=== PATIENT | male | born 1935 | race Caucasian/White ===

== ENCOUNTER 2023-09-11 18:28 | Inpatient (IN) | payer OTHER, MEDICAID ==
[~2023-09-11] VITALS: Ht 172.7 cm; Wt 68.0 kg
[2023-09-11 18:46] VITALS: BP 94/63; PULSE 125; RESP 20; TEMP 100.1; O2SAT 97
[2023-09-11] MEDS ORDERED: ACETAMINOPHEN 650 MG SUPP RC ONE ×2 (19:07→19:25)
[2023-09-11] MEDS ORDERED: PIPERACILLIN/TAZOBACTAM 3.375 GM in DEXTROSE 5% 50 ML IV ONE (19:55)
[2023-09-11] MEDS ORDERED: NACL 0.9% 2,000 ML IV ONE (19:55)
[2023-09-11] MEDS ORDERED: PIPERACILLIN/TAZOBACTAM 3.375 GM VIAL IV ONE (19:58)
[2023-09-11 20:28] LABS: BASOPHILS % (AUTO) 0.1 % (0.0-2.0); EOSINOPHILS % (AUTO) 0.1 % (0.0-4.0); HEMATOCRIT 33.7 % (36-52); HEMOGLOBIN 11.3 g/dL (12.0-18.0); LYMPHOCYTES # (AUTO) 0.4 K/uL (2.0-11.5); LYMPHOCYTES % (AUTO) 4.8 % (20.5-51.1); MEAN CORPUSCULAR HEMOGLOBIN 37 pg (27-31); MEAN CORPUSCULAR HGB CONC 34 g/dL (33-37); MEAN CORPUSCULAR VOLUME 109.7 fL (80-94); MONOCYTES # (AUTO) 0.5 K/uL (0.8-1.0); MONOCYTES % (AUTO) 6.2 % (1.7-9.3); NEUTROPHILS # (AUTO) 6.9 K/uL (1.8-7.7); NEUTROPHILS % (AUTO) 88.8 % (42.2-75.2); PLATELET COUNT (AUTO) 101 K/uL (140-450); RED BLOOD CELL COUNT(AUTO) 3.07 MIL/uL (4.20-6.10); RED CELL DISTRIBUTION WIDTH 14.1 % (11.6-13.7); WHITE BLOOD COUNT (AUTO) 7.8 K/uL (4.8-10.8)
[2023-09-11 20:43] LABS: ALANINE AMINOTRANSFERASE 21 U/L (12-78); ALBUMIN 2.2 g/dL (3.4-5.0); ALKALINE PHOSPHATASE 76 U/L (50-136); ANION GAP 12.7 (8-16); ASPARTATE AMINOTRANSFERASE 30 U/L (15-37); CALCIUM 9.2 mg/dL (8.5-10.1); CARBON DIOXIDE 28.5 mmol/L (21-32); CHLORIDE 110 mmol/L (98-107); CREATININE 1.6 mg/dL (0.6-1.3); GLUCOSE 300 mg/dL (74-106); POTASSIUM 4.2 mmol/L (3.5-5.1); SODIUM SERUM 147 mmol/L (136-145); TOTAL BILIRUBIN 1.2 mg/dL (0.0-1.0); TOTAL PROTEIN, SERUM 6.5 g/dL (6.4-8.2)
[2023-09-11 20:44] LABS: UREA NITROGEN, BLOOD 85 mg/dL (7-18)
[2023-09-11 20:46] LABS: CREATINE KINASE, TOTAL 546 U/L (39-308)
[2023-09-11 20:49] LABS: LACTIC ACID 3.4 mmol/L (0.4-2.0)
[2023-09-11 21:39] LABS: BILIRUBIN,URINE NEGATIVE (NEGATIVE); BLOOD, URINE 2+ (NEGATIVE); LEUKOCYTE ESTERASE ,URINE NEGATIVE (NEGATIVE); NITRITE, URINE POSITIVE (NEGATIVE); PROTEIN,URINE 2+ (NEGATIVE); UGLUCOSE NEGATIVE (NEGATIVE)
[2023-09-11 21:40] LABS: APPEARANCE,URINE CLOUDY (CLEAR); COLOR,URINE AMBER (YELLOW)
[2023-09-11 21:49] LABS: BACTERIA,URINE >30 (MANY) /HPF (None Seen); MUCUS,URINE 2+ /LPF (None Seen); SQUAMOUS EPITHELIAL CELL,UR 0-3 (FEW) /LPF (0-3 (FEW)); WBC,URINE 0-5 /HPF (0-5)
[2023-09-11] MEDS ORDERED: HYDROcodone/APAP 5/325 MG 1 TAB TAB PO PRN (22:20)
[2023-09-11] MEDS ORDERED: ACETAMINOPHEN 325 MG TAB PO PRN (22:20)
[2023-09-11] MEDS ORDERED: NACL 0.9% 1,000 ML IV SCH (22:20)
[2023-09-11] MEDS ORDERED: LORazepam 2 MG/ML VIAL IVP PRN (22:20)
[2023-09-11] MEDS ORDERED: MORPHINE SULFATE 4 MG/ML SYR IVP PRN (22:20)
[2023-09-11 22:22] LABS: FLU A ANTIGEN negative (NEGATIVE); FLU B ANTIGEN NEGATIVE (NEGATIVE)
[2023-09-11] MEDS ORDERED: INSULIN LANTUS 100 UNITS/ML 10 ML VIAL SUBQ ONE (22:30)
[2023-09-11] MEDS ORDERED: HEPARIN PER PHARMACY MC PRN (22:30)
[2023-09-11] MEDS ORDERED: hePARIN / DEXT 5% PREMIX 250 ML IV ONE (22:30)
[2023-09-11] MEDS ORDERED: DEXTROSE 50% 50 ML SYR IVP PRN (22:35)
[2023-09-11] MEDS ORDERED: cefTRIAXone 1,000 MG VIAL ONE (22:55)
[2023-09-11 22:59] LABS: CKMB RELATIVE INDEX 0.1 (0.0-2.5); CREATINE KINASE MB 0.5 ng/mL (0-3.6)
[2023-09-11 23:00] LABS: THYROID STIMULATING HORMONE 1.1 uIU/mL (0.34-3.74)
[2023-09-12] VITALS (15 sets, daily range): BP systolic 110–138; BP diastolic 60–70; PULSE 61–130; RESP 16–28; TEMP 98–99.5; O2SAT 88–100
[2023-09-12] MEDS ORDERED: NACL 0.9% 1,000 ML IV ONE (00:05)
[2023-09-12 01:08] LABS: INR 1.12 (0.8-1.2); PARTIAL THROMBOPLASTIN TIME 35.8 secs (22-35.6); PROTHROMBIN TIME 11.7 secs (10.8-13.4)
[2023-09-12 01:24] LABS: LACTIC ACID 2.7 mmol/L (0.4-2.0)
[2023-09-12] MEDS: IPRATROPIUM 0.02% 0.5 MG/2.5 ML NEBU INH SCH ×4 (01:46→21:54)
[2023-09-12] MEDS: ALBUTEROL 0.083% 2.5 MG/3 ML NEBU INH PRN ×2 (01:46→21:54)
[2023-09-12 04:16] LABS: EOSINOPHILS # (AUTO) 0.1 K/uL (0-0.4); EOSINOPHILS % (AUTO) 1.5 % (0.0-4.0); HEMOGLOBIN 11.3 g/dL (12.0-18.0); LYMPHOCYTES # (AUTO) 0.3 K/uL (2.0-11.5); LYMPHOCYTES % (AUTO) 5.4 % (20.5-51.1); MEAN CORPUSCULAR HEMOGLOBIN 36 pg (27-31); MEAN CORPUSCULAR HGB CONC 33 g/dL (33-37); MEAN CORPUSCULAR VOLUME 109.9 fL (80-94); MONOCYTES # (AUTO) 0.4 K/uL (0.8-1.0); MONOCYTES % (AUTO) 5.6 % (1.7-9.3); NEUTROPHILS # (AUTO) 5.5 K/uL (1.8-7.7); NEUTROPHILS % (AUTO) 87.5 % (42.2-75.2); PLATELET COUNT (AUTO) 81 K/uL (140-450); RED BLOOD CELL COUNT(AUTO) 3.09 MIL/uL (4.20-6.10); RED CELL DISTRIBUTION WIDTH 14.2 % (11.6-13.7); WHITE BLOOD COUNT (AUTO) 6.3 K/uL (4.8-10.8)
[2023-09-12 06:53] LABS: ALANINE AMINOTRANSFERASE 25 U/L (12-78); ALBUMIN 2.1 g/dL (3.4-5.0); ALKALINE PHOSPHATASE 73 U/L (50-136); ANION GAP 12.4 (8-16); ASPARTATE AMINOTRANSFERASE 32 U/L (15-37); CARBON DIOXIDE 29.8 mmol/L (21-32); CHLORIDE 115 mmol/L (98-107); CREATININE 1.5 mg/dL (0.6-1.3); GLUCOSE 176 mg/dL (74-106); POTASSIUM 4.2 mmol/L (3.5-5.1); SODIUM SERUM 153 mmol/L (136-145); TOTAL PROTEIN, SERUM 6.4 g/dL (6.4-8.2)
[2023-09-12 07:21] LABS: UREA NITROGEN, BLOOD 78 mg/dL (7-18)
[2023-09-12 08:01] LABS: LACTIC ACID 4.5 mmol/L (0.4-2.0)
[2023-09-12] MEDS ORDERED: ACETAMINOPHEN 650 MG SUPP RC ONE (08:02)
[2023-09-12] MEDS ORDERED: DEXT 5% / NACL 0.45% 1,000 ML IV SCH (08:05)
[2023-09-12] MEDS ORDERED: VANCOMYCIN PER PHARMACY MC PRN (08:10)
[2023-09-12] MEDS ORDERED: ACETAMINOPHEN 650 MG SUPP RC SCH (08:14)
[2023-09-12] MEDS ORDERED: MULT-2253 PO (08:33)
[2023-09-12] MEDS ORDERED: PRON INH (08:33)
[2023-09-12] MEDS ORDERED: NUTR-298 PO (08:33)
[2023-09-12] MEDS ORDERED: ZINC50TA58 PO (08:33)
[2023-09-12] MEDS ORDERED: MAGN400S60 PO (08:33)
[2023-09-12] MEDS ORDERED: XAR10 PO (08:33)
[2023-09-12] MEDS ORDERED: ASCO500T95 PO (08:33)
[2023-09-12] MEDS ORDERED: BISA-218 RC (08:33)
[2023-09-12] MEDS ORDERED: VITB12 PO (08:33)
[2023-09-12] MEDS: BLOOD GLUCOSE MONITORING 1 DEV DEV FS SCH ×4 (08:37→21:29)
[2023-09-12] MEDS: hePARIN / DEXT 5% PREMIX 250 ML IV SCH ×2 (10:46→18:59)
[2023-09-12] MEDS: FOAM DRESSING TP SCH (13:37)
[2023-09-12] MEDS: GAUZE TP SCH (13:37)
[2023-09-12] MEDS: NON ADHERENT DRESSING TP SCH (13:37)
[2023-09-12] MEDS: HYDRAGUARD CREAM TP SCH (13:43)
[2023-09-12] MEDS: DEXT 5% / NACL 0.9% 1,000 ML IV SCH (16:05)
[2023-09-12] MEDS ORDERED: LORazepam 1 MG TAB PO PRN (16:15)
[2023-09-12 18:21] LABS: INR 1.14 (0.8-1.2); PARTIAL THROMBOPLASTIN TIME 44.3 secs (22-35.6); PROTHROMBIN TIME 11.9 secs (10.8-13.4)
[2023-09-12] MEDS: VANCOMYCIN 1,000 MG in DEXTROSE 5% 250 ML IV SCH (18:51)
[2023-09-12] MEDS: PIPERACILLIN/TAZOBACTAM 3.375 GM in DEXTROSE 5% 50 ML IV SCH (21:27)
[2023-09-13] VITALS (10 sets, daily range): BP systolic 103–134; BP diastolic 59–75; PULSE 56–107; RESP 16–20; TEMP 96.6–98.1; O2SAT 93–100
[2023-09-13] MEDS: IPRATROPIUM 0.02% 0.5 MG/2.5 ML NEBU INH SCH ×4 (01:00→20:08)
[2023-09-13] MEDS: GAUZE TP SCH ×2 (01:00→13:03)
[2023-09-13] MEDS: HYDRAGUARD CREAM TP SCH ×2 (01:00→13:04)
[2023-09-13] MEDS: DEXT 5% / NACL 0.9% 1,000 ML IV SCH (02:05)
[2023-09-13] MEDS: PIPERACILLIN/TAZOBACTAM 3.375 GM in DEXTROSE 5% 50 ML IV SCH ×2 (04:47→13:03)
[2023-09-13] MEDS: BLOOD GLUCOSE MONITORING 1 DEV DEV FS SCH ×4 (06:33→21:43)
[2023-09-13] MEDS: INSULIN LISPRO SLIDING SCALE 100 UNITS/ML VIAL SUBQ PRN ×2 (06:36→12:21)
[2023-09-13 06:46] LABS: BASOPHILS % (AUTO) 0.1 % (0.0-2.0); EOSINOPHILS % (AUTO) 0.7 % (0.0-4.0); HEMATOCRIT 29.7 % (36-52); HEMOGLOBIN 9.8 g/dL (12.0-18.0); LYMPHOCYTES # (AUTO) 0.6 K/uL (2.0-11.5); LYMPHOCYTES % (AUTO) 10.3 % (20.5-51.1); MEAN CORPUSCULAR HEMOGLOBIN 37 pg (27-31); MEAN CORPUSCULAR HGB CONC 33 g/dL (33-37); MONOCYTES # (AUTO) 0.3 K/uL (0.8-1.0); MONOCYTES % (AUTO) 4.9 % (1.7-9.3); NEUTROPHILS # (AUTO) 4.6 K/uL (1.8-7.7); PLATELET COUNT (AUTO) 57 K/uL (140-450); RED BLOOD CELL COUNT(AUTO) 2.68 MIL/uL (4.20-6.10); RED CELL DISTRIBUTION WIDTH 14.5 % (11.6-13.7); WHITE BLOOD COUNT (AUTO) 5.5 K/uL (4.8-10.8)
[2023-09-13 07:35] LABS: ALANINE AMINOTRANSFERASE 62 U/L (12-78); ALBUMIN 1.7 g/dL (3.4-5.0); ALKALINE PHOSPHATASE 72 U/L (50-136); ANION GAP 9.6 (8-16); ASPARTATE AMINOTRANSFERASE 83 U/L (15-37); CALCIUM 8.5 mg/dL (8.5-10.1); CARBON DIOXIDE 28.7 mmol/L (21-32); CHLORIDE 118 mmol/L (98-107); CREATININE 1.2 mg/dL (0.6-1.3); GLUCOSE 192 mg/dL (74-106); POTASSIUM 3.3 mmol/L (3.5-5.1); SODIUM SERUM 153 mmol/L (136-145); TOTAL BILIRUBIN 0.5 mg/dL (0.0-1.0); TOTAL PROTEIN, SERUM 5.6 g/dL (6.4-8.2); UREA NITROGEN, BLOOD 32 mg/dL (7-18)
[2023-09-13] MEDS ORDERED: POTASSIUM CHLORIDE 10 MEQ TABER PO PRN (08:10)
[2023-09-13] MEDS ORDERED: MAG SULF 2000 MG/WATER PREMIX 50 ML IV PRN (08:10)
[2023-09-13] MEDS ORDERED: ACETAMINOPHEN 325 MG TAB PO PRN (08:10)
[2023-09-13] MEDS ORDERED: ONDANSETRON 4 MG/2 ML VIAL IVP PRN (08:10)
[2023-09-13] MEDS ORDERED: ZOLPIDEM 10 MG TAB PO PRN (08:10)
[2023-09-13] MEDS: INSULIN LANTUS 100 UNITS/ML 10 ML VIAL SUBQ SCH (08:40)
[2023-09-13] MEDS: VANCOMYCIN 1,000 MG in DEXTROSE 5% 250 ML IV SCH (08:41)
[2023-09-13] MEDS ORDERED: POTASSIUM CHLORIDE 20% 40 MEQ/15 ML UDC GT SCH (11:39)
[2023-09-13] MEDS: DEXTROSE 5% 1,000 ML IV SCH ×2 (12:28→21:40)
[2023-09-13] MEDS: FOAM DRESSING TP SCH (13:03)
[2023-09-13] MEDS: NON ADHERENT DRESSING TP SCH (13:03)
[2023-09-13] MEDS: CEFEPIME 1,000 MG in DEXTROSE 5% 50 ML IV SCH (21:40)
[2023-09-14] VITALS (12 sets, daily range): BP systolic 117–145; BP diastolic 57–80; PULSE 55–104; RESP 16–20; TEMP 97.1–98.9; O2SAT 95–100
[2023-09-14] MEDS: IPRATROPIUM 0.02% 0.5 MG/2.5 ML NEBU INH SCH ×4 (01:00→19:00)
[2023-09-14] MEDS: GAUZE TP SCH ×2 (01:32→13:07)
[2023-09-14] MEDS: HYDRAGUARD CREAM TP SCH ×2 (01:32→13:06)
[2023-09-14] MEDS: BLOOD GLUCOSE MONITORING 1 DEV DEV FS SCH ×4 (06:43→21:16)
[2023-09-14] MEDS: DEXTROSE 5% 1,000 ML IV SCH ×2 (06:48→22:07)
[2023-09-14 09:27] LABS: BASOPHILS % (AUTO) 0.1 % (0.0-2.0); EOSINOPHILS % (AUTO) 0.1 % (0.0-4.0); HEMATOCRIT 28.7 % (36-52); HEMOGLOBIN 9.5 g/dL (12.0-18.0); LYMPHOCYTES # (AUTO) 0.4 K/uL (2.0-11.5); LYMPHOCYTES % (AUTO) 10.9 % (20.5-51.1); MEAN CORPUSCULAR HEMOGLOBIN 37 pg (27-31); MEAN CORPUSCULAR HGB CONC 33 g/dL (33-37); MEAN CORPUSCULAR VOLUME 110.7 fL (80-94); MONOCYTES # (AUTO) 0.1 K/uL (0.8-1.0); MONOCYTES % (AUTO) 3.3 % (1.7-9.3); NEUTROPHILS # (AUTO) 3.5 K/uL (1.8-7.7); NEUTROPHILS % (AUTO) 85.6 % (42.2-75.2); PLATELET COUNT (AUTO) 51 K/uL (140-450); RED BLOOD CELL COUNT(AUTO) 2.59 MIL/uL (4.20-6.10); RED CELL DISTRIBUTION WIDTH 14.3 % (11.6-13.7); WHITE BLOOD COUNT (AUTO) 4.1 K/uL (4.8-10.8)
[2023-09-14 09:41] LABS: ALANINE AMINOTRANSFERASE 87 U/L (12-78); ALBUMIN 1.5 g/dL (3.4-5.0); ALKALINE PHOSPHATASE 84 U/L (50-136); ANION GAP 5.7 (8-16); ASPARTATE AMINOTRANSFERASE 65 U/L (15-37); CALCIUM 8.5 mg/dL (8.5-10.1); CARBON DIOXIDE 30.5 mmol/L (21-32); CHLORIDE 113 mmol/L (98-107); CREATININE 0.9 mg/dL (0.6-1.3); GLUCOSE 202 mg/dL (74-106); POTASSIUM 4.2 mmol/L (3.5-5.1); SODIUM SERUM 145 mmol/L (136-145); TOTAL BILIRUBIN 0.6 mg/dL (0.0-1.0); TOTAL PROTEIN, SERUM 5.3 g/dL (6.4-8.2); UREA NITROGEN, BLOOD 46 mg/dL (7-18)
[2023-09-14] MEDS: CEFEPIME 1,000 MG in DEXTROSE 5% 50 ML IV SCH ×2 (09:50→21:59)
[2023-09-14] MEDS: ASCORBIC ACID 500 MG/5 ML ORASYR GT SCH (09:50)
[2023-09-14] MEDS: ZINC SULF 220 MG CAP PO SCH (09:50)
[2023-09-14] MEDS: MULTIVITAMIN/MINERALS 1 TAB PO SCH (09:50)
[2023-09-14] MEDS: INSULIN LANTUS 100 UNITS/ML 10 ML VIAL SUBQ SCH (09:52)
[2023-09-14] MEDS: VANCOMYCIN 1.25GM PREMIX 250 ML IV SCH (11:36)
[2023-09-14] MEDS: FOAM DRESSING TP SCH (13:07)
[2023-09-14] MEDS: NON ADHERENT DRESSING TP SCH (13:07)
[2023-09-14] MEDS: INSULIN LISPRO SLIDING SCALE 100 UNITS/ML VIAL SUBQ PRN (16:11)
[2023-09-15] VITALS (9 sets, daily range): BP systolic 114–149; BP diastolic 43–93; PULSE 86–101; RESP 16–20; TEMP 97–98.6; O2SAT 94–100
[2023-09-15] MEDS: IPRATROPIUM 0.02% 0.5 MG/2.5 ML NEBU INH SCH ×3 (00:25→19:56)
[2023-09-15] MEDS: GAUZE TP SCH ×2 (01:38→13:42)
[2023-09-15] MEDS: HYDRAGUARD CREAM TP SCH ×2 (01:38→13:42)
[2023-09-15] MEDS: VANCOMYCIN 1.25GM PREMIX 250 ML IV SCH (05:41)
[2023-09-15] MEDS: BLOOD GLUCOSE MONITORING 1 DEV DEV FS SCH ×4 (07:01→21:07)
[2023-09-15] MEDS: ZINC SULF 220 MG CAP PO SCH (09:36)
[2023-09-15] MEDS: CEFEPIME 1,000 MG in DEXTROSE 5% 50 ML IV SCH (09:36)
[2023-09-15] MEDS: MULTIVITAMIN/MINERALS 1 TAB PO SCH (09:36)
[2023-09-15] MEDS: INSULIN LANTUS 100 UNITS/ML 10 ML VIAL SUBQ SCH (09:37)
[2023-09-15] MEDS: ASCORBIC ACID 500 MG/5 ML ORASYR GT SCH (09:38)
[2023-09-15 10:54] LABS: BASOPHILS % (AUTO) 0.1 % (0.0-2.0); EOSINOPHILS % (AUTO) 0.2 % (0.0-4.0); HEMATOCRIT 26.9 % (36-52); HEMOGLOBIN 8.9 g/dL (12.0-18.0); LYMPHOCYTES # (AUTO) 0.7 K/uL (2.0-11.5); LYMPHOCYTES % (AUTO) 12.1 % (20.5-51.1); MEAN CORPUSCULAR HEMOGLOBIN 36 pg (27-31); MEAN CORPUSCULAR HGB CONC 33 g/dL (33-37); MEAN CORPUSCULAR VOLUME 109.8 fL (80-94); MONOCYTES # (AUTO) 0.2 K/uL (0.8-1.0); MONOCYTES % (AUTO) 3.9 % (1.7-9.3); NEUTROPHILS # (AUTO) 4.7 K/uL (1.8-7.7); NEUTROPHILS % (AUTO) 83.7 % (42.2-75.2); PLATELET COUNT (AUTO) 63 K/uL (140-450); RED BLOOD CELL COUNT(AUTO) 2.45 MIL/uL (4.20-6.10); RED CELL DISTRIBUTION WIDTH 13.9 % (11.6-13.7); WHITE BLOOD COUNT (AUTO) 5.6 K/uL (4.8-10.8)
[2023-09-15 11:14] LABS: ALANINE AMINOTRANSFERASE 59 U/L (12-78); ALBUMIN 1.4 g/dL (3.4-5.0); ALKALINE PHOSPHATASE 81 U/L (50-136); ANION GAP 7.7 (8-16); ASPARTATE AMINOTRANSFERASE 37 U/L (15-37); CARBON DIOXIDE 29.6 mmol/L (21-32); CHLORIDE 111 mmol/L (98-107); CREATININE 0.7 mg/dL (0.6-1.3); GLUCOSE 111 mg/dL (74-106); POTASSIUM 3.3 mmol/L (3.5-5.1); SODIUM SERUM 145 mmol/L (136-145); TOTAL BILIRUBIN 0.7 mg/dL (0.0-1.0); UREA NITROGEN, BLOOD 34 mg/dL (7-18)
[2023-09-15] MEDS ORDERED: POTASSIUM CHLORIDE 20% 40 MEQ/15 ML UDC GT SCH (13:00)
[2023-09-15] MEDS: FOAM DRESSING TP SCH (13:42)
[2023-09-15] MEDS: NON ADHERENT DRESSING TP SCH (13:42)
[2023-09-15] MEDS ORDERED: TOBRAMYCIN 0.3% OPTH OINT 3.5 GM TUBE OP SCH (14:20)
[2023-09-15] MEDS: TOBRAMYCIN 0.3% OPTH SOL 5 ML BTL BOTH EYES SCH ×2 (16:43→21:02)
[2023-09-15] MEDS ORDERED: AMPICILLIN/SULBACTAM 3 GM VIAL ONE (23:40)
[2023-09-15] MEDS ORDERED: AMPICILLIN 1,000 MG VIAL ONE (23:51)
[2023-09-16] VITALS (12 sets, daily range): BP systolic 110–140; BP diastolic 56–76; PULSE 94–106; RESP 16–18; TEMP 97.4–98.2; O2SAT 97–100
[2023-09-16] MEDS: TOBRAMYCIN 0.3% OPTH SOL 5 ML BTL BOTH EYES SCH ×6 (00:06→22:46)
[2023-09-16] MEDS: AMPICILLIN 2,000 MG in NACL 0.9% 100 ML IV SCH ×4 (00:06→17:02)
[2023-09-16] MEDS: HYDRAGUARD CREAM TP SCH ×2 (00:11→12:04)
[2023-09-16] MEDS: GAUZE TP SCH ×2 (00:12→12:04)
[2023-09-16] MEDS: IPRATROPIUM 0.02% 0.5 MG/2.5 ML NEBU INH SCH ×4 (00:22→20:42)
[2023-09-16] MEDS ORDERED: AMPICILLIN 2,000 MG VIAL ONE (05:06)
[2023-09-16] MEDS: INSULIN LISPRO SLIDING SCALE 100 UNITS/ML VIAL SUBQ PRN ×3 (06:09→22:48)
[2023-09-16 06:25] LABS: ANION GAP 8.7 (8-16); CALCIUM 7.9 mg/dL (8.5-10.1); CARBON DIOXIDE 28.1 mmol/L (21-32); CHLORIDE 111 mmol/L (98-107); CREATININE 0.7 mg/dL (0.6-1.3); GLUCOSE 171 mg/dL (74-106); POTASSIUM 3.8 mmol/L (3.5-5.1); SODIUM SERUM 144 mmol/L (136-145); UREA NITROGEN, BLOOD 31 mg/dL (7-18)
[2023-09-16] MEDS: BLOOD GLUCOSE MONITORING 1 DEV DEV FS SCH ×4 (06:45→22:45)
[2023-09-16] MEDS: ZINC SULF 220 MG CAP PO SCH (08:13)
[2023-09-16] MEDS: ASCORBIC ACID 500 MG/5 ML ORASYR GT SCH (08:13)
[2023-09-16] MEDS: MULTIVITAMIN/MINERALS 1 TAB PO SCH (08:13)
[2023-09-16] MEDS: INSULIN LANTUS 100 UNITS/ML 10 ML VIAL SUBQ SCH (08:19)
[2023-09-16 09:38] LABS: EOSINOPHILS % (AUTO) 0.3 % (0.0-4.0); HEMATOCRIT 26.8 % (36-52); LYMPHOCYTES # (AUTO) 0.5 K/uL (2.0-11.5); LYMPHOCYTES % (AUTO) 8.3 % (20.5-51.1); MEAN CORPUSCULAR HEMOGLOBIN 37 pg (27-31); MEAN CORPUSCULAR HGB CONC 34 g/dL (33-37); MEAN CORPUSCULAR VOLUME 109.1 fL (80-94); MONOCYTES # (AUTO) 0.2 K/uL (0.8-1.0); NEUTROPHILS # (AUTO) 5.6 K/uL (1.8-7.7); NEUTROPHILS % (AUTO) 88.4 % (42.2-75.2); PLATELET COUNT (AUTO) 84 K/uL (140-450); RED BLOOD CELL COUNT(AUTO) 2.45 MIL/uL (4.20-6.10); RED CELL DISTRIBUTION WIDTH 13.8 % (11.6-13.7); WHITE BLOOD COUNT (AUTO) 6.3 K/uL (4.8-10.8)
[2023-09-16 09:52] LABS: ALANINE AMINOTRANSFERASE 51 U/L (12-78); ALBUMIN 1.4 g/dL (3.4-5.0); ALKALINE PHOSPHATASE 85 U/L (50-136); ANION GAP 8.9 (8-16); ASPARTATE AMINOTRANSFERASE 26 U/L (15-37); CHLORIDE 111 mmol/L (98-107); CREATININE 0.7 mg/dL (0.6-1.3); GLUCOSE 195 mg/dL (74-106); POTASSIUM 3.9 mmol/L (3.5-5.1); SODIUM SERUM 146 mmol/L (136-145); TOTAL BILIRUBIN 0.6 mg/dL (0.0-1.0); UREA NITROGEN, BLOOD 29 mg/dL (7-18)
[2023-09-16] MEDS: NON ADHERENT DRESSING TP SCH (12:04)
[2023-09-16] MEDS: FOAM DRESSING TP SCH (12:04)
[2023-09-17] VITALS (11 sets, daily range): BP systolic 121–152; BP diastolic 57–82; PULSE 82–105; RESP 16–19; TEMP 97.9–98.6; O2SAT 92–100
[2023-09-17] MEDS: AMPICILLIN 2,000 MG in NACL 0.9% 100 ML IV SCH ×3 (00:47→11:26)
[2023-09-17] MEDS: TOBRAMYCIN 0.3% OPTH SOL 5 ML BTL BOTH EYES SCH ×4 (00:52→11:24)
[2023-09-17] MEDS: GAUZE TP SCH ×2 (01:48→13:01)
[2023-09-17] MEDS: HYDRAGUARD CREAM TP SCH ×2 (01:50→13:02)
[2023-09-17] MEDS: IPRATROPIUM 0.02% 0.5 MG/2.5 ML NEBU INH SCH ×3 (01:55→13:22)
[2023-09-17] MEDS: BLOOD GLUCOSE MONITORING 1 DEV DEV FS SCH ×2 (06:57→11:12)
[2023-09-17 07:20] LABS: ALANINE AMINOTRANSFERASE 39 U/L (12-78); ALBUMIN 1.3 g/dL (3.4-5.0); ALKALINE PHOSPHATASE 79 U/L (50-136); ANION GAP 7.4 (8-16); ASPARTATE AMINOTRANSFERASE 21 U/L (15-37); CALCIUM 7.5 mg/dL (8.5-10.1); CARBON DIOXIDE 28.8 mmol/L (21-32); CHLORIDE 109 mmol/L (98-107); CREATININE 0.6 mg/dL (0.6-1.3); GLUCOSE 123 mg/dL (74-106); POTASSIUM 3.2 mmol/L (3.5-5.1); SODIUM SERUM 142 mmol/L (136-145); TOTAL BILIRUBIN 0.5 mg/dL (0.0-1.0); TOTAL PROTEIN, SERUM 4.9 g/dL (6.4-8.2); UREA NITROGEN, BLOOD 24 mg/dL (7-18)
[2023-09-17] MEDS ORDERED: POTASSIUM CHLORIDE 20% 40 MEQ/15 ML UDC GT PRN (08:05)
[2023-09-17] MEDS ORDERED: POTASSIUM CHLORIDE 20% 40 MEQ/15 ML UDC PO PRN (08:05)
[2023-09-17] MEDS: ASCORBIC ACID 500 MG/5 ML ORASYR GT SCH (08:24)
[2023-09-17] MEDS: ZINC SULF 220 MG CAP PO SCH (08:24)
[2023-09-17] MEDS: MULTIVITAMIN/MINERALS 1 TAB PO SCH (08:24)
[2023-09-17] MEDS: INSULIN LANTUS 100 UNITS/ML 10 ML VIAL SUBQ SCH (08:31)
[2023-09-17 09:19] LABS: BASOPHILS % (AUTO) 0.1 % (0.0-2.0); EOSINOPHILS % (AUTO) 0.4 % (0.0-4.0); HEMATOCRIT 25.1 % (36-52); HEMOGLOBIN 8.5 g/dL (12.0-18.0); LYMPHOCYTES # (AUTO) 0.6 K/uL (2.0-11.5); LYMPHOCYTES % (AUTO) 10.9 % (20.5-51.1); MEAN CORPUSCULAR HEMOGLOBIN 37 pg (27-31); MEAN CORPUSCULAR HGB CONC 34 g/dL (33-37); MONOCYTES # (AUTO) 0.2 K/uL (0.8-1.0); MONOCYTES % (AUTO) 4.5 % (1.7-9.3); NEUTROPHILS # (AUTO) 4.4 K/uL (1.8-7.7); NEUTROPHILS % (AUTO) 84.1 % (42.2-75.2); PLATELET COUNT (AUTO) 118 K/uL (140-450); RED BLOOD CELL COUNT(AUTO) 2.33 MIL/uL (4.20-6.10); RED CELL DISTRIBUTION WIDTH 13.8 % (11.6-13.7); WHITE BLOOD COUNT (AUTO) 5.2 K/uL (4.8-10.8)
[2023-09-17] MEDS: FOAM DRESSING TP SCH (13:01)
[2023-09-17] MEDS: NON ADHERENT DRESSING TP SCH (13:02)
== END 2023-09-17 15:20 | DRG 871 ==
LOC: MED 18:28 → MTU 22:25
PROVIDERS: ADMIT Family Medicine; ATTEND Family Medicine
DX: A40.8 Other streptococcal sepsis (principal); E43 Unspecified severe protein-calorie malnutrition; G93.41 Metabolic encephalopathy; I21.4 Non-ST elevation (NSTEMI) myocardial infarction; N39.0 Urinary tract infection, site not specified; N17.9 Acute kidney failure, unspecified; E87.20 Acidosis, unspecified; M62.82 Rhabdomyolysis; M86.8X7 Other osteomyelitis, ankle and foot; L03.116 Cellulitis of left lower limb; R65.20 Severe sepsis without septic shock; E11.65 Type 2 diabetes mellitus with hyperglycemia; J44.9 Chronic obstructive pulmonary disease, unspecified; F03.90 Unspecified dementia, unspecified severity, without behavioral disturbance, psychotic disturbance, mood disturbance, and anxiety; D64.9 Anemia, unspecified; D69.6 Thrombocytopenia, unspecified; E86.1 Hypovolemia; Z66 Do not resuscitate; N28.1 Cyst of kidney, acquired; E11.69 Type 2 diabetes mellitus with other specified complication; Z20.822 Contact with and (suspected) exposure to COVID-19; I10 Essential (primary) hypertension; Z88.1 Allergy status to other antibiotic agents; Z79.899 Other long term (current) drug therapy; Z93.1 Gastrostomy status; Z68.22 Body mass index [BMI] 22.0-22.9, adult
CPT/HCPCS: 36415; 71045; 76770; 80048; 80053; 80202; 81001; 82550; 82553; 82948; 83036; 83605; 83880; 84300; 84443; 84484; 85025; 85610; 85730; 87040; 87086; 87186; 93005; 94640; 96361; 96365; 96367; 96372; 99291; J0290; J0295; J0692; J0696; J1644; J1815; J2270; J2543; J3370; J3372; J7060; J7613; J7644; Q0092